=== PATIENT | female | born 1975 | race Caucasian/White ===

== ENCOUNTER → 2021-03-23 | Outpatient (CLI) | payer BC ==
--- NOTE | 2021-03-23 09:55 | Diagnostic Imaging Report ---
INDICATION: Back pain for 6 months. FINDINGS: Three views of the lumbosacral spine show normal height and alignment of the vertebral bodies. The disc spaces are well-maintained. There is no significant spondylosis. There are mild degenerated facets from L3 through L5. No bony canal stenosis is evident. There is no fracture. IMPRESSION: There is mild degenerative facet disease present with no acute abnormality seen. Dictated by: Dictated on workstation # [id number]
== END ==
LOC: RAD FS 09:31
PROVIDERS: ATTEND Nurse Practitioner Family
DX: M47.816 Spondylosis without myelopathy or radiculopathy, lumbar region (principal)
CPT/HCPCS: 72100